=== PATIENT | male | born 1990 | race African-American/Black ===

== ENCOUNTER 2019-11-01 03:40 | Emergency (ER) | payer SELFPAY ==
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
[2019-11-01 03:43] VITALS: BP 123/75; PULSE 88; RESP 16; TEMP 36.7; O2SAT 98; BMI 21.6
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
--- NOTE | 2019-11-01 03:53 | PC.NURSE ---
Warm blankets provided to patient.
[2019-11-01 04:16] VITALS: BP 123/75; PULSE 88; RESP 16; TEMP 36.7; O2SAT 98
== END 2019-11-01 04:19 | disposition home or self-care (01) ==
PROVIDERS: Emergency Provider Emergency Medicine
DX: S60.221A Contusion of right hand, initial encounter (principal); W22.09XA Striking against other stationary object, initial encounter
CPT/HCPCS: 73130; 99281; 99283

== ENCOUNTER 2020-01-14 04:27 | Emergency (ER) | payer SELFPAY ==
[2020-01-14 04:38] VITALS: BP 148/87; PULSE 71; RESP 18; TEMP 36.7; O2SAT 100; BMI 22.3
--- NOTE | 2020-01-14 04:48 | XRR_ITS ---
PROCEDURE INFORMATION: Exam: XR Right Hand Exam date and time: 01/14/2020 4:58 AM Age: 29 years old Clinical indication: Swelling; Hand; Right; Additional info: Hand pain. Infection is evident clinically. TECHNIQUE: Imaging protocol: XR Right hand. Views: 3 or more views. COMPARISON: CR XR hand RT min 3V* [id number] 11/01/2019 3:47 AM FINDINGS: Bones/joints: There is subtle periosteal reaction along the ulnar margin of the distal 4th metacarpal which is new since the prior exam on 11/01/2019. There is no acute fracture. Soft tissues: There is edema overlying and splaying of the 4th and 5th metacarpal heads. There is trace superficial soft tissue gas. XR/XR hand RT min 3V* [id number] IMPRESSION: 1. No fracture. 2. Soft tissue swelling and trace gas over the 4th and 5th metacarpal heads consistent with cellulitis. Diastasis of the 4th and 5th metacarpal heads suggests the possibility of interposed abscess. Consider ultrasound or MRI follow-up. 3. Periosteal reaction along the distal 4th metacarpal. Possible osteomyelitis versus reactive changes from adjacent soft tissue infection.
--- NOTE | 2020-01-14 04:51 | W.ED.SKABFB ---
HPI - Skin/Abscess/Foreign Bdy General: Chief complaint: Skin/Abscess/Foreign Body Stated complaint: Right hand pain Time Seen by Provider: 01/14/20 04:33 History of Present Illness: MD complaint: rash and abscess/boil Onset (ago): day(s) Tetanus up to date: yes Location: R hand Severity: moderate Severity scale (1-10): 5 Quality: burning and aching Pain Consistency: constant Relieving factors: other Exacerbating factors: movement Associated symptoms: Deny chills, fever(s) or vomiting Treatments prior to arrival: attempted to drain pus at home Review of Systems Const: Denies: fever or chills Resp: Denies: shortness of breath or productive cough GI: Denies: vomiting Musc: Reports: joint swelling PFSH ED PFSH: Social History Smoking and tobacco status: never smoked Physical Exam Const: COMMON NORMALS: no apparent distress and oriented x3 HENMT: COMMON NORMALS: normocephalic HEAD & SCALP: normocephalic Chest: COMMONS NORMALS: inspection of chest normal Resp: COMMON NORMALS: normal respiratory effort and no use of accessory muscles Cardio: COMMON NORMALS: regular rate, regular rhythm and peripheral pulses 2+ throughout RATE: regular rate RHYTHM: regular rhythm PERIPHERAL PULSES: pulses 2+ throughout Extremity: RIGHT UPPER EXTREMITY: Yes hand & digits (Right hand fourth MCP swelling, significant with surrounding erythema. Some fluctuance. Small laceration just proximal to the fourth MCP currently with clear drainage.) Neuro: COMMON NORMALS: oriented x3 Procedures Abscess I/D Site: hand Side (if applicable): right Sedation/analgesia: fentanyl Local Anesthetic: lidocaine 1% Amount of anesthesia used (mL): 5 Technique: incised with #11 blade Amount of fluid expressed (mL): 6 Irrigation: No Packing used?: plain Course Vital Signs: Vital signs: Vital Signs Temperature 98.1 F 01/14/20 04:38 Pulse Rate 88 01/14/20 06:39 Respiratory Rate 18 01/14/20 06:39 Blood Pressure 110/78 01/14/20 06:39 Pulse Oximetry 96 01/14/20 06:39 MDM - Skin/Abscess/Foreign Bdy MDM Narrative: Medical decision making narrative: 29-year-old male with a prior contusion to his right fourth MCP area now with an abscess. They attempted to open it at home. His tendon function appears intact. It was incised with a small longitudinal incision after local anesthetic and a moderate amount of thin purulent bloody fluid was expelled. It was packed with sterile gauze. If his labs do not look significantly abnormal, he will be allowed discharge. He is getting 1 g of Vanco. We will put him on Bactrim. He will follow-up in a couple of days with urgent care for wound check, and packing removal. Close attention to extensor function should be continued to be followed. Lab Data: Labs: Lab Results 01/14/20 01/14/20 Range/Units 06:23 06:23 WBC 9.4 (4.0-10.0) 10^3/ uL RBC 4.54 (4.1-5.3) 10^6/u L Hgb 11.7 (11.7-16.6) g/dL Hct 38.1 L (42.0-52.0) % MCV 83.9 (80-94) fL MCH 25.8 L (28.0-34.0) pg MCHC 30.7 (30.0-36.0) g/dL RDW 13.4 (12.1-15.1) % Plt Count 289 (130-400) 10^3/c mm MPV 9.2 (7.4-10.4) fL Sodium 136 (136-145) mmol/L Potassium 4.2 (3.5-5.1) mmol/L Chloride 100 (98-107) mmol/L Carbon Dioxide 24 (22-29) mmol/L Anion Gap 16.2 (5-19) BUN 15 (6-20) mg/dL Creatinine 1.1 (0.7-1.2) mg/dL GFR Calculation 97.2 (90-130) mL/min Glucose 104 (65-115) mg/dL Calculated Osmolal ity 279 L (285-295) mOsm/k g Calcium 9.4 (8.5-10.5) mg/dL C-Reactive Protein 19.8 H (0.0-4.9) mg/L Discharge Plan Discharge Patient Disposition: Home, Self-Care Clinical Impression: Abscess of skin or subcutaneous tissue Qualifiers: Site of cutaneous abscess: extremity Site of cutaneous abscess of extremity: hand Laterality: right Qualified Code(s): L02.511 - Cutaneous abscess of right hand Condition: Stable Prescriptions: New Bactrim DS 800-160 mg tablet 2 tab PO BID 10 Days Qty: 40 RF: 0 tramadol 50 mg tablet 50 mg PO Q8H PRN (Reason: pain) Qty: 10 RF: 0 No Action EC-Naprosyn 500 mg tablet,delayed release (DR/EC) 500 mg PO BID PRN (Reason: pain) Qty: 20 RF: 0 Augmentin 875-125 mg tablet 1 tab PO Q12H Qty: 14 RF: 0 Discharge Orders: Discharge Order (Routine); Ordered 01/14/20 Ordered By: Chester Pérez Discharge Diet: Usual diet Discharge Activity: Limit activity as instructed Patient Instructions: Abscess Incision and Drainage (ED) Activity Restrictions/Additional Instructions: Limit the use of your right hand until packing is pulled and wound is healed. Return for worsening redness or streaking or swelling despite 2-3 doses of antibiotics. Return for weakening or decreased ability over time to straighten your finger, or intense pain with doing so that is worsening. Return for fever greater than 100. Follow-up with your primary doctor or urgent care clinic in 3 days for a wound check. Medications as directed. Coding Level of Care Code ED Energy Operations Vice President for Jered Fwmy Exam Detailed
[2020-01-14 05:39] VITALS: RESP 18; O2SAT 99
[2020-01-14] MEDS: fentaNYL 50 mcg/mL INJ 2mL 100 MCG IVP (05:39)
[2020-01-14] MEDS: lidocaine 1% INJ 20 mL INJECTION (05:40)
[2020-01-14] MEDS: vancomycin 1,000 MG in sodium chloride 0.9% 250 ML 250 MG IV (05:41)
[2020-01-14 06:33] LABS: Hematocrit 38.1 % (42.0-52.0); Hemoglobin 11.7 g/dL (11.7-16.6); Mean Corpuscular HGB Conc 30.7 g/dL (30.0-36.0); Mean Corpuscular Hemoglobin 25.8 pg (28.0-34.0); Mean Corpuscular Volume 83.9 fL (80-94); Mean Platelet Volume 9.2 fL (7.4-10.4); Platelet Count 289 10^3/cmm (130-400); Red Blood Count 4.54 10^6/uL (4.1-5.3); Red Cell Distribution Width 13.4 % (12.1-15.1); White Blood Count 9.4 10^3/uL (4.0-10.0)
[2020-01-14 06:39] VITALS: BP 110/78; PULSE 88; RESP 18; O2SAT 96
[2020-01-14 06:42] LABS: Anion Gap 16.2 (5-19); Blood Urea Nitrogen 15 mg/dL (6-20); C Reactive Protein 19.8 mg/L (0.0-4.9); Calcium 9.4 mg/dL (8.5-10.5); Carbon Dioxide 24 mmol/L (22-29); Chloride 100 mmol/L (98-107); Glomerular Filtration Rate 97.2 mL/min (90-130); Glucose 104 mg/dL (65-115); Osmolality Calculated 279 mOsm/kg (285-295); Potassium 4.2 mmol/L (3.5-5.1); Sodium 136 mmol/L (136-145)
[2020-01-14 06:52] VITALS: BP 132/74; PULSE 77; RESP 16; O2SAT 99
[2020-01-14 06:54] LABS: Absolute Segmented Neutrophil 5.8 10/cmm (1.6-7.1); Anisocytosis 1+; Lymphocytes 29 %; Monocytes Absolute 0.8 10^3/cmm (0.1-0.6); Platelet Estimate Normal (Normal); Segmented Neutrophils 62 %; Total Cells Counted 100 (0-100)
== END 2020-01-14 06:54 | disposition home or self-care (01) ==
PROVIDERS: Emergency Provider Emergency Medicine
DX: L02.511 Cutaneous abscess of right hand (principal)
CPT/HCPCS: 10060; 12345; 36415; 73130; 80048; 85007; 85027; 86140; 96365; 96366; 96375; 99282; 99284; J2001; J3010; J3370; J7050

== ENCOUNTER 2020-01-17 16:49 | Emergency (ER) | payer SELFPAY ==
[2020-01-17 16:52] VITALS: BP 119/102; PULSE 73; RESP 16; TEMP 36.6; O2SAT 100; BMI 22.3
--- NOTE | 2020-01-17 17:42 | W.ED.WOUNDLC ---
HPI - Wound/Laceration General: Chief Complaint: Wound/Laceration Stated Complaint: R hand infection recheck Source: patient Mode of arrival: ambulatory Limitations: no limitations History of Present Illness: HPI narrative: patient comes in for recheck on wound, patient appears well. Patient appears in no pain Review of Systems General: Reports: 10 or more systems reviewed and unremarkable except in HPI and below Skin/Breast: Reports: other (open abscess right dorsal hand) PFSH ED PFSH: Social History Smoking and tobacco status: never smoked Physical Exam Const: COMMON NORMALS: no apparent distress and oriented x3 GENERAL APPEARANCE: cooperative HENMT: COMMON NORMALS: normocephalic, external ears normal, EAC's normal, TM's normal bilaterally and external nose normal HEAD & SCALP: normal to inspection and normocephalic FACE & SINUS: normal facial exam NOSE: external nose normal GENERAL EAR: hearing not grossly impaired EXTERNAL EAR: Yes external ears normal EXTERNAL AUDITORY CANAL: EAC's normal TYMPANIC MEMBRANE: TM's normal bilaterally MOUTH: oral and palatal mucosa normal THROAT: posterior oropharynx normal Eye: COMMON NORMALS: PERRL and EOMs intact bilaterally PUPIL: Yes PERRL Neck/C-Spine: COMMON NORMALS: full ROM and no lymphadenopathy Lymph: LYMPHATIC: no lymphedema noted Chest: COMMONS NORMALS: inspection of chest normal and palpation of chest normal Resp: COMMON NORMALS: normal respiratory effort and clear to auscultation bilaterally AUSCULTATION: clear to auscultation bilaterally Cardio: COMMON NORMALS: regular rate and regular rhythm RATE: regular rate RHYTHM: regular rhythm GI: COMMON NORMALS: normal to inspection, nondistended, normoactive bowel sounds and non-tender : COMMON NORMALS: Yes no CVA tenderness BLADDER/KIDNEY EXAM: Yes no CVA tenderness Back/Pelvis: COMMON NORMALS: no CVA tenderness and thoracic and lumbar spine normal to inspection Extremity: COMMON NORMALS: normal to inspection GENERAL: No edema Neuro: COMMON NORMALS: oriented x3, moves all extremities and no focal motor deficits Psych: COMMON NORMALS: mental status grossly normal and cooperative Skin: COMMON NORMALS: no rashes or lesions noted GENERAL SKIN EXAM: no rashes or lesions noted Course Vital Signs: Vital signs: Vital Signs Temperature 98 F 01/17/20 16:52 Pulse Rate 73 01/17/20 16:52 Respiratory Rate 16 01/17/20 16:52 Blood Pressure 119/102 01/17/20 16:52 Pulse Oximetry 100 01/17/20 16:52 MDM - Wound/Laceration MDM Narrative: Medical decision making narrative: patient presents for evaluation of skin abscess. wound well granulated, normal rom of hand. Healing abscess noted, considered tenosynivitis, sepsis, osteomyelitis. No signs of serious illness or disease was noted. Will continue patient with Bactrim, and recommend recheck in 3 days. wjw Discharge Plan Discharge Patient Disposition: Home, Self-Care Clinical Impression: Abscess of skin or subcutaneous tissue Qualifiers: Site of cutaneous abscess: extremity Site of cutaneous abscess of extremity: hand Laterality: right Qualified Code(s): L02.511 - Cutaneous abscess of right hand Condition: Stable Prescriptions: New Bactrim DS 800-160 mg tablet 1 tab PO Q12H Qty: 20 RF: 0 No Action Bactrim DS 800-160 mg tablet 2 tab PO BID 10 Days Qty: 40 RF: 0 tramadol 50 mg tablet 50 mg PO Q8H PRN (Reason: pain) Qty: 10 RF: 0 EC-Naprosyn 500 mg tablet,delayed release (DR/EC) 500 mg PO BID PRN (Reason: pain) Qty: 20 RF: 0 Augmentin 875-125 mg tablet 1 tab PO Q12H Qty: 14 RF: 0 Discharge Orders: Discharge Order (Routine); Ordered 01/17/20 Ordered By: Lukas Lancaster Discharge Diet: Usual diet Discharge Activity: Increase activity as tolerated Patient Instructions: Abscess Incision and Drainage (ED) Activity Restrictions/Additional Instructions: change dressing daily Keep wound clean and dry Get antibiotic filled and take as directed Follow-up with primary care Return to ER in 3 days if unable to see primary care, for recheck of wound Coding Level of Care Code ED Restaurant Bartender for Chg Fwd Exam Comprehensive
[2020-01-17] MEDS: sulfamethoxazole-trimeth DS 160-800 mg Tablet 1 TAB PO (17:51)
--- NOTE | 2020-01-17 17:54 | PC.NURSE ---
WOUND DRESSES WITH WET TO DRY PACKING AND WRAPPED WITH KERLIX, PATIENT TOLERATED WEPP
[2020-01-17 17:56] VITALS: BP 116/78; PULSE 78; RESP 18; O2SAT 100
== END 2020-01-17 18:02 | disposition home or self-care (01) ==
LOC: ER 18:03
PROVIDERS: Emergency Provider Nurse Practitioner Family
DX: L02.511 Cutaneous abscess of right hand (principal)
CPT/HCPCS: 12345; 99281; 99283